=== PATIENT | female | born 1990 | race Caucasian/White ===

== ENCOUNTER 2018-03-17 10:21 | Emergency (ER) | payer OTHER ==
[2018-03-17] MEDS ORDERED: diPHENhydraMINE IV* 50 MG/ML 1 ml VIAL (BENADRYL) SLOW PUSH ONE (11:12)
[2018-03-17] MEDS ORDERED: PROCHLORPERAZINE INJ 5 MG/ML 2 ML VIAL IV ONE (11:12)
[2018-03-17] MEDS ORDERED: NS 0.9% 1000 ML* 1,000 ML IV ONE (11:12)
[2018-03-17 13:58] VITALS: BP 103/46
--- NOTE | 2018-03-19 07:56 | ED ---
Lila Corral Tenzin, scribed for Tejas Wylie MD on 03/17/18 at 1105 . Dizziness - HPI Summary HPI Summary: Pt is a 27 years old female presenting to the ED complaining of vertigo and emesis since last night and notes that it got worse this morning with two episodes of emesis [employer]. Pt notes that her drove her to work this morning and at work the vertigo was constant and she bumped to few things at work. Pt notes that she could not keep the vertigo down and prompted the pt to see at the ED today. Pt denies: fever, Chills, Erythema (eyes), Sore throat Chest pain, SOB, cough, abd pain, V/N/D, Dysuria, Hematuria, Myalgia, Edema and rash. Pt notes that vertigo is aggravated by any change in motion and alleviated only when she is sitting still and constant. Pt notes that she took Meclizine at home today at 0800. Pt notes that she had a similar problem with vertigo five years ago and was treated for it. She reports that she has asthma and allergy. Pt drinks socially and does not smoke. Pt just got back from [place] three days ago. Pt notes that she often gets motion sickness. PSHx: ACL - History Of Current Complaint Chief Complaint: EDDizziness Stated Complaint: DIZZINESS Time Seen by Provider: 03/17/18 10:50 Hx Obtained From: Patient Onset/Duration: Still Present Character: Room Spinning, Dizzy Aggravating Factor(s): Change In Head Position Alleviating Factor(s): Rest, Other - sitting still Associated Signs And Symptoms: Positive: Vomiting, Other: - vertigo.. Negative : Diarrhea, Chest Pain, SOB, Fever, Chills, Blood In Stool - Allergies/Home Medications Allergies/Adverse Reactions: Allergies Allergy/AdvReac Type Severity Reaction Status Date / Time latex Allergy Rash Verified 03/17/18 10:42 alexa Allergy Rash Verified 03/17/18 10:42 Home Medications: Home Medications Flovent Hfa 44 mcg(NF) 88 mcg INH DAILY 03/17/18 [History Confirmed 03/17/18] Meclizine TAB* [Antivert 12.5 TAB*] 12.5 mg PO DAILY PRN 03/17/18 [History Confirmed 03/17/18] PMH/Surg Hx/FS Hx/Imm Hx Cardiovascular History: Denies: Hx Coronary Artery Disease Respiratory History: Reports: Hx Asthma Infectious Disease History: No Infectious Disease History: Denies: Traveled Outside the [place] in Last 30 Days - Family History Known Family History: Positive: Hypertension - Social History Alcohol Use: Occasionally Substance Use Type: Reports: None Smoking Status (MU): Never Smoked Tobacco Review of Systems Negative: Fever, Chills Negative: Erythema Negative: Sore Throat Negative: Chest Pain Negative: Shortness Of Breath, Cough Positive: Vomiting, Other - Vertigo Negative: dysuria, hematuria Negative: Myalgia, Edema Negative: Rash All Other Systems Reviewed And Are Negative: Yes Physical Exam - Summary Physical Exam Summary: Constitutional: Well-developed, Well-nourished, Alert. (-) Distressed Skin: Warm, Dry HENT: Normocephalic; Atraumatic Eyes: Conjunctiva normal Neck: Musculoskeletal ROM normal neck. (-) JVD, (-) Stridor, (-) Tracheal deviation Cardio: Rhythm regular, rate normal, Heart sounds normal; Intact distal pulses; The pedal pulses are 2+ and symmetric. Radial pulses are 2+ and symmetric. (-) Murmur Pulmonary/Chest wall: Effort normal. (-) Respiratory distress, (-) Wheezes, (-) Rales Abd: Soft. (-) Tenderness, (-) Distension, (-) Guarding, (-) Rebound Musculoskeletal: (-) Edema Lymph: (-) Cervical adenopathy Neuro: Alert, Oriented x3, Strength normal, Cranial nerves II-XII are grossly intact. (-) Dysmetria, (-) Nystagmus, (-) Ataxia by finger to nose testing, (-) Sensory deficit. Psych: Mood and affect Normal NEGATIVE: Nilson Drew pipe test POSITIVE: Supine roll test. Triage Information Reviewed: Yes Vital Signs On Initial Exam: Initial Vitals Temp Pulse Resp BP Pulse Ox 98.6 F 77 17 132/66 100 03/17/18 10:24 03/17/18 10:24 03/17/18 10:24 03/17/18 10:24 03/17/18 10:24 Vital Signs Reviewed: Yes Diagnostics - Vital Signs Vital Signs Temp Pulse Resp BP Pulse Ox 03/17/18 10:50 70 124/72 100 03/17/18 10:24 98.6 F 77 17 132/66 100 - Laboratory Lab Statement: Any lab studies that have been ordered have been reviewed, and results considered in the medical decision making process. Re-Evaluation - Re-Evaluation First Eval Re-Evaluation Time: 11:33 Change: Unchanged Second Eval Re-Evaluation Time: 13:32 Change: Improved Comment: Pt was showed the BBQ roll manuever and she tolerated well. she is ambulatory. Her gait is steady. Pt notes that he feels better. She is diagnosed with benign position vertigo and f/u with ENT. Dizzy Course/Dx - Course Course Of Treatment: Pt is a 27 years old female presenting to the ED complaining of vertigo and emesis since last night and notes that it got worse this morning with two episodes of emesis [employer]. Pt notes that she took Meclizine for vertigo at home today at 0800. At the ED, Gruver Drew pipe test was negative and Supine roll test was positive. Pt was given IV and meds at the ED today. Pt was showed the BBQ roll manuever and she tolerated well. she is ambulatory. Her gait is steady. Pt notes that he feels better. She is diagnosed with benign position vertigo. Pt is advised to f/u with ENT physician or PCP in 2-3 days. I highly suspect the horizontal canal as the culprit. - Diagnoses Provider Diagnoses: Benign positional vertigo Discharge - Sign-Out/Discharge Documenting (check all that apply): Discharge/Admit/Transfer - Discharge - Discharge Plan Condition: Stable Disposition: HOME Prescriptions: Ondansetron ODT TAB* [Zofran 4 MG Odt TAB*] 4 mg PO Q8H PRN #12 tab.odt PRN Reason: Vertigo Patient Education Materials: Benign Paroxysmal Positional Vertigo (ED) Forms: *Work Release Referrals: Parminder Mendiola NP [Primary Care Provider] - Additional Instructions: Follow up with ENT physician two to three days. RETURN TO THE EMERGENCY DEPARTMENT FOR CHANGING OR WORSENING SYMPTOMS. - Billing Disposition and Condition Condition: STABLE Disposition: Home The documentation as recorded by the Lila richards Tenzin accurately reflects the service I personally performed and the decisions made by me, Tejas Wylie MD.
== END 2018-03-17 13:57 | disposition home or self-care (01) ==
LOC: ED 10:21
DX: H81.10 Benign paroxysmal vertigo, unspecified ear (principal); R11.10 Vomiting, unspecified
CPT/HCPCS: 99283; J0780; J1200